=== PATIENT | male | born 1955 | race Two or more races ===

== ENCOUNTER 2021-04-15 14:29 | Emergency (ER) | payer BC, OTHER ==
[~2021-04-15] VITALS: Ht 154.9 cm; Wt 59.0 kg
[2021-04-15 15:05] VITALS: BP 154/52
[2021-04-15] MEDS ORDERED: ACETAMINOPHEN 500 MG TAB PO ONE (15:45)
== END 2021-04-15 16:38 | disposition home or self-care (01) ==
LOC: ER 14:29
DX: S20.214A Contusion of middle front wall of thorax, initial encounter (principal); V43.52XA Car driver injured in collision with other type car in traffic accident, initial encounter; Y93.89 Activity, other specified; Y92.488 Other paved roadways as the place of occurrence of the external cause; Y99.8 Other external cause status
CPT/HCPCS: 71101